=== PATIENT | male | born 1985 | race Caucasian/White ===

== ENCOUNTER 2025-10-09 08:07 | Emergency (ER) | payer OTHER ==
[~2025-10-09] VITALS: Ht 182.9 cm; Wt 97.5 kg
[2025-10-09] MEDS ORDERED: GELATIN SPONGE,ABSORBABLE 1 EA SPONGE TP ONE (08:21)
[2025-10-09 08:34] VITALS: BP 141/85; TEMP 98.3; O2SAT 98
== END 2025-10-09 08:35 | disposition home or self-care (01) ==
LOC: ER 08:11
DX: K60.2 Anal fissure, unspecified (principal); K62.89 Other specified diseases of anus and rectum
CPT/HCPCS: 99283; A6403